=== PATIENT | male | born 1980 | race Caucasian/White ===

== ENCOUNTER 2017-08-29 10:33 | Emergency (ER) | payer OTHER ==
[~2017-08-29] VITALS: Ht 180.3 cm; Wt 81.8 kg
[2017-08-29] MEDS ORDERED: KETOROLAC TROMETHAMINE 60 MG/2 ML VIAL IM ONE (12:00)
[2017-08-29] MEDS ORDERED: CLINDAMYCIN HCL 150 MG CAPSULE PO ONE (12:00)
[2017-08-29 12:10] VITALS: BP 138/80
== END 2017-08-29 12:11 | disposition home or self-care (01) ==
LOC: EMS 10:36
DX: K04.7 Periapical abscess without sinus (principal); F17.210 Nicotine dependence, cigarettes, uncomplicated
CPT/HCPCS: 96372; 99283; J1885